=== PATIENT | male | born 1970 | race Caucasian/White ===

== ENCOUNTER → 2020-11-26 09:03 | Outpatient (CLI) | payer OTHER, SELFPAY ==
--- NOTE | 2020-11-26 | DI.CT.S_ITS ---
PROCEDURE: CT ABDOMEN PELVIS WO/W CON INDICATIONS: Left lower quadrant pain TECHNIQUE: Oral contrast was given 5 mm thick noncontrast images acquired from the diaphragm to the symphysis pubis. After the administration of intravenous contrast, 5 mm thick images acquired from the diaphragm to the symphysis pubis after a 10-minute delay. 2 mm thick coronal and sagittal reformats were then performed of the kidneys and ureters. For radiation dose reduction, the following was used: automated exposure control, adjustment of mA and/or kV according to patient size. COMPARISON: None. FINDINGS: Image quality: Excellent. Lung bases: Lung bases are clear. Heart size is normal. Solid organs: Liver is normal in size. Small hypodense lesions are seen involving the liver, which likely represent hemangiomas. Gallbladder wall is not thickened. Biliary system is non dilated. Pancreas enhances normally. Spleen is normal in size and enhancement. No adrenal nodules. On precontrast imaging, no stones are seen. The kidneys demonstrate normal size and enhance symmetrically. No hydronephrosis can be seen. Peritoneum and bowel: In this patient with this given history, scrutiny is given to the sigmoid colon and the left lower quadrant. Mild diverticulosis is seen, without active diverticulitis. No focal left lower quadrant inflammatory changes are seen. Bowel loops demonstrate normal wall thickness and caliber. No free fluid or air. A normal appendix is incidentally noted. Nodes and vessels: No retroperitoneal or mesenteric adenopathy by size criteria. Aorta and inferior vena cava are normal in size. Abdominal wall: No ventral hernias. Rectus diastasis can be seen. Pelvis: No pathologic free pelvic fluid. No inguinal hernias or adenopathy. No bladder abnormality is seen. Bones: No suspicious bony lesions. No vertebral body compression fractures. IMPRESSION: Mild sigmoid diverticulosis. No diverticulitis. Incidental note is made of: Normal appendix No kidney stones or hydronephrosis. Rectus diastasis Dictated by: Brent Mendez M.D. on 11/26/2020 at 9:57 Approved by: Brent Mendez M.D. on 11/26/2020 at 10:01
== END ==
PROVIDERS: Family Provider Family Medicine; PCP Nurse Practitioner Family; Referring Provider Nurse Practitioner Family; Visit Provider Nurse Practitioner Family
DX: R10.32 Left lower quadrant pain (principal); K57.30 Diverticulosis of large intestine without perforation or abscess without bleeding; M62.08 Separation of muscle (nontraumatic), other site
CPT/HCPCS: 74178; Q9967

== ENCOUNTER 2021-04-23 09:51 | Day surgery (SDC) | payer OTHER, SELFPAY ==
[2021-04-23 10:27] LABS: COVID19 -Nasal RAPID Negative (Negative)
[2021-04-23] MEDS: SODIUM CHLORIDE 0.9% 1,000 ML 200 ML IV (10:35)
[2021-04-23 10:36] VITALS: BMI 24.3
[2021-04-23 10:40] VITALS: BP 160/86; PULSE 81; RESP 20; TEMP 36.9; O2SAT 98
--- NOTE | 2021-04-23 12:40 | PM.HP.1 ---
History of Present Illness History of Present Illness Date Patient Seen: 04/23/21 Time Patient Seen: 12:40 Chief complaint: SDC Narrative: This is a 50-year-old man who has a history of left sided abdominal pain, who is here for his 1st colonoscopy. He denies any history of melena, hematochezia, unexplained weight loss, family history of polyps or colon cancers. ROS: Thirteen system review is otherwise negative other than as mentioned below and in HPI. PE: GENERAL: Well groomed and cooperative. Appears stated age. Answers questions promptly and appropriately. Vital signs noted. HENT: Normocephalic, atraumatic. Hearing intact. EYES: Conjunctiva pink, sclera white, no periorbital swelling. CARDIOVASCULAR: Regular rate. No pedal edema. RESPIRATORY: Non-tachypneic, breathing comfortably on room air. GASTROINTESTINAL: Abdomen soft and non-distended GENITALURINARY: No flank tenderness. No inguinal hernias MUSCULOSKELETAL: Equal tone and mass bilaterally. SKIN: Warm, dry, soft, appropriate color for ethnicity. No other lesions, rashes, or wounds. NEURO: Alert and Oriented X 3. No gross sensory deficits, or cognitive issues. PSYCH: Appropriate affect and mood. Patient History Family & Social History Family History Brother Schizophrenia Mother Hypertension Prediabetes Social History: household members significant other Tobacco & Substance use: Smoking Status Never smoker alcohol intake current Substance Use Type does not use Meds Home Medications and Allergies Home Medications Medication Instructions Recorded Confirmed Type multivitamin 1 tab PO DAILY 11/29/20 04/23/21 History Allergies Allergy/AdvReac Type Severity Reaction Status Date / Time No Known Drug Allergies Allergy Verified 04/23/21 10:24 Exam Vital Signs (past 8 hours): - 04/23/21 10:40 Temperature 98.4 F Pulse Rate 81 Respiratory Rate 20 Blood Pressure 160/86 H Pulse Oximetry 98 Oxygen Delivery Method Room Air Objective Labs Labs: Laboratory Results - last 24 hr 04/23/21 09:50 SARS-CoV-2 (PCR) Negative Assessment & Plan Assessment and plan (1) At average risk for colon cancer: Status: Acute (2) Diverticulosis: Status: Acute (3) Encounter for screening colonoscopy: Status: Acute Assessment & Plan narrative: Risks and benefits of screening colonoscopy and possible polypectomy were discussed with the patient including risk of bleeding, perforation, need for additional procedures, risks of anesthesia. The patient desires to proceed with the colonoscopy procedure. COVID-19 COVID-19 status: Negative Result date/Date tested (Pos, Neg/Pending): 04/23/21 Time Spent With Patient Time with patient: 15-24 minutes Quality VTE Deep Vein Thrombosis/Pulmonary Embolism Present on Admission: No
[2021-04-23] MEDS: fentaNYL 250 MCG/5 ML INJ IV (12:44)
[2021-04-23] MEDS: MIDAZOLAM 5 MG/5 ML VIAL IV ×2 (12:44→13:01)
--- NOTE | 2021-04-23 12:46 | P.OP.ENDO_ITS ---
Operative Date/Time/Diagnoses Date of procedure: 04/23/21 Time of procedure: 12:46 Pre-op diagnosis: Average risk colon cancer, never had a screening colonoscopy Post-op diagnosis: other (No polyps, very mild diverticulosis) Procedure & Clinicians Study performed: Colonoscopy Procedural sedation performed by the endoscopist Same procedure as scheduled: Yes Indications: Average risk for colon cancer, due for screening colonoscopy Surgeon: Lara Jacobson Procedure Notes SCOAP/Timeout: Performed Procedure in detail: The patient was brought to the room and placed in left lateral decubitus position with all bony prominences padded. A time-out was performed and then the patient was given procedural sedation starting with 6 mg of Versed and 100 mcg of fentanyl. A total of 9 mg of Versed and 200 micro g of fentanyl were given for the entire procedure. Vitals were monitored throughout the procedure and remained stable. Once adequately sedated, the procedure was begun. A rectal exam was performed revealing no abnormalities. The colonoscope was then introduced to the rectum and advanced to the cecum in the usual fashion. The cecum was identified by the appendiceal orifice, the mucosal tri- fold, and the ileocecal valve. The scope was then retracted while rotating side to side and examining each mucosal fold. No polyps were seen. Mild diverticulosis was seen in the sigmoid colon. No evidence of diverticulitis or fibrosis of the colon were seen. At the conclusion of the procedure retroflexion was performed and small grade 1-2 internal hemorrhoids without stigmata of bleeding were seen. The scope was then withdrawn from the rectum the procedure was concluded. The patient tolerated the procedure well and was transferred to the PACU in stable condition. Scope withdrawal time: 6 Sedation minutes: 21 Findings: diverticulosis Specimen(s): none sent Complications: none Impression: Mild diverticulosis Post-procedure Recommendations: Colonscopy in 10 years and High fiber diet Follow up: as needed Disposition: PACU
[2021-04-23 13:11] VITALS: BP 129/78; PULSE 91; RESP 14; TEMP 36.6; O2SAT 96
[2021-04-23 13:16] VITALS: BP 132/81; PULSE 93; RESP 16; O2SAT 97
[2021-04-23 13:19] VITALS: BP 130/81; PULSE 96; RESP 16; TEMP 36.3; O2SAT 98
[2021-04-23 13:26] VITALS: BP 124/82; PULSE 96; RESP 16; O2SAT 96
--- NOTE | 2021-04-23 13:36 | SUR.PHASEII ---
pt given discharge instructions. pt states he understands discharge instructions. Pt states he is ready to go eat a hamburger. pt denies pain and nausea and pt had coffee and water prior to discharge.
== END 2021-04-23 13:38 | disposition home or self-care (01) ==
PROVIDERS: Family Provider Family Medicine; PCP Nurse Practitioner Family; Referring Provider Surgery; Visit Provider Surgery
PROC: 0DJD8ZZ Inspection of Lower Intestinal Tract, Via Natural or Artificial Opening Endoscopic (ICD-10-PCS; CPT 45378; principal; 2021-04-23 13:00)
DX: Z12.11 Encounter for screening for malignant neoplasm of colon (principal); K57.30 Diverticulosis of large intestine without perforation or abscess without bleeding; Z20.822 Contact with and (suspected) exposure to COVID-19; K64.0 First degree hemorrhoids
CPT/HCPCS: 45378; 87635; 99152; J2250; J3010